=== PATIENT | male | born 1950 ===

== ENCOUNTER 2024-04-08 06:05 | Day surgery (SDC) | payer OTHER ==
[2024-04-08] MEDS ORDERED: DIPHENHYDRAMINE HCL 50 MG/ML VIAL 1ML IV ONE (10:15)
[2024-04-08] MEDS ORDERED: fentaNYL CITRATE 50 MCG/ML AMPUL IV ONE (10:15)
[2024-04-08] MEDS ORDERED: MIDAZOLAM HCL 2 MG/2 ML VIAL IV ONE (10:15)
== END 2024-04-08 11:50 | disposition home or self-care (01) ==
LOC: AMB-ENDOS 06:05
PROVIDERS: ATTEND Surgery
DX: C18.4 Malignant neoplasm of transverse colon (principal); K63.5 Polyp of colon; K57.30 Diverticulosis of large intestine without perforation or abscess without bleeding; K64.8 Other hemorrhoids

== ENCOUNTER 2024-05-17 11:00 | Inpatient (IN) | payer OTHER ==
[~2024-05-17] VITALS: Ht 172.7 cm; Wt 84.4 kg
[2024-05-17] MEDS ORDERED: METFORMIN HCL1000 M2 PO (12:11)
[2024-05-17] MEDS ORDERED: HORIZANT300 MG PO (12:11)
[2024-05-17] MEDS ORDERED: GLIPIZIDE XL10 MG PO (12:11)
[2024-05-17] MEDS ORDERED: ATORVASTATIN CA40 MG PO (12:12)
[2024-05-17] MEDS ORDERED: FARXIGA10 MG PO (12:14)
[2024-05-17] MEDS ORDERED: TAMS0.4C PO (12:14)
[2024-05-17] MEDS ORDERED: MICARDIS80 MG PO (12:14)
[2024-05-17] MEDS ORDERED: FUSION PLUS CA1 EACH PO (12:15)
[2024-05-17] MEDS ORDERED: VERAPAMIL ER240 MG PO (12:15)
[2024-05-17] MEDS ORDERED: PEPCID AC20 MG PO (12:15)
[2024-05-17 12:21] VITALS: BP 140/71
[2024-05-21] MEDS ORDERED: METRONIDAZOLE/SODIUM CHLORIDE 500 MG/100 ML PIGGYBACK IV ONE ×2 (08:16→17:08)
[2024-05-21] MEDS ORDERED: CEFTRIAXONE SODIUM 2,000 MG VIAL ONE (08:16)
[2024-05-21] MEDS ORDERED: HETASTARCH IN 0.9 % NACL 500 ML PLAST..BAG IV ONE (12:39)
[2024-05-21] MEDS ORDERED: MORPHINE SULFATE 4 MG/ML VIAL IV ONE ×2 (14:15→15:55)
[2024-05-21] MEDS ORDERED: ONDANSETRON HCL 2 MG/ML VIAL IV PRN (15:30)
[2024-05-21] MEDS ORDERED: MORPHINE SULFATE 4 MG/ML CARTRIDGE IV PRN (15:30)
[2024-05-21] MEDS ORDERED: OxyCODONE HCL 5 MG TABLET (ROXICODONE) PO PRN (15:30)
[2024-05-21] MEDS ORDERED: RINGERS SOLUTION,LACTATED 1,000 ML IV SCH (15:30)
[2024-05-21] MEDS ORDERED: INSULIN LISPRO 1,000 UNIT/10 ML UNITS SUBCUTANEO PRN (15:45)
[2024-05-21] MEDS ORDERED: DEXTROSE 50 % IN WATER 0.5 G/ML DISP.SYRIN IV PRN (15:45)
[2024-05-21] MEDS ORDERED: LACTOBACILLUS ACIDOPHILUS 1 CAP CAP PO SCH (17:00)
[2024-05-21] MEDS ORDERED: HYOSCYAMINE SULFATE 0.125 MG TAB.SUBL SL SCH (17:00)
[2024-05-21] MEDS ORDERED: TAMSULOSIN HCL 0.4 MG CAP PO SCH (17:00)
[2024-05-21] MEDS ORDERED: METRONIDAZOLE/SODIUM CHLORIDE 500 MG/100 ML PIGGYBACK IV SCH (17:00)
[2024-05-21] MEDS ORDERED: GABAPENTIN 300 MG CAPSULE PO SCH (17:00)
[2024-05-21 17:53] VITALS: BP 162/77; O2SAT 97
[2024-05-21] MEDS ORDERED: ACETAMINOPHEN 500 MG GEL..CAP PO SCH (18:00)
[2024-05-21] MEDS ORDERED: FAMOTIDINE/PF 20 MG/2 ML VIAL IV PUSH SCH (21:00)
[2024-05-21] MEDS ORDERED: CIPROFLOXACIN IN 5 % DEXTROSE 400 MG/200 ML PIGGYBAG IV SCH (21:00)
[2024-05-22 00:39] VITALS: BP 154/70; O2SAT 100
[2024-05-22 08:00] VITALS: BP 156/74; O2SAT 98
[2024-05-22] MEDS ORDERED: VERAPAMIL HCL 240 MG TABLET.SA PO SCH (09:00)
[2024-05-22] MEDS ORDERED: TELMISARTAN PO SCH (09:00)
[2024-05-22] MEDS ORDERED: HYDROCHLOROTHIAZIDE PO SCH (09:00)
[2024-05-22 12:14] LABS: ALBUMIN 2.4 gm/dL (3.4-5.0); CALCIUM 8.2 mg/dL (8.5-10.1); CREATININE SERUM 0.88 mg/dL (0.70-1.30); GFR 84.65; MAGNESIUM 1.5 mg/dL (1.8-2.4); POTASSIUM 3.94 mEq/L (3.5-5.1)
[2024-05-22 12:20] LABS: PHOSPHOROUS 1.9 mg/dL (2.5-4.9)
[2024-05-22] MEDS ORDERED: MAGNESIUM SULFATE IN WATER 50 ML IV NR (14:30)
[2024-05-22 16:08] VITALS: BP 111/61; O2SAT 98
[2024-05-22] MEDS ORDERED: ENOXAPARIN SODIUM 40 MG/0.4 ML SYRINGE SUBCUTANEO SCH (17:00)
[2024-05-22] MEDS ORDERED: POTASSIUM PHOS,M-BASIC-D-BASIC 3 MM/ML VIAL IV ONE (17:00)
[2024-05-22 18:45] LABS: HEMATOCRIT 32.5 % (39.0-48.0); HEMOGLOBIN 10.5 g/dL (13-16.00); MEAN CELL VOLUME 77.5 fL (80.0-100.00); MEAN CORPUSCULAR HGB CONC 32.2 g/dl (32.0-36.0); PLATELET COUNT 334 K/uL (150-450); RED CELL DISTRIBUTION WIDTH 24.4 % (11.5-14.5)
[2024-05-23 01:01] VITALS: BP 135/63; O2SAT 96
[2024-05-23 08:16] LABS: CALCIUM 8.5 mg/dL (8.5-10.1); CREATININE SERUM 0.76 mg/dL (0.70-1.30); GFR 100.26; MAGNESIUM 2.1 mg/dL (1.8-2.4); PHOSPHOROUS 2.8 mg/dL (2.5-4.9); POTASSIUM 4.65 mEq/L (3.5-5.1)
[2024-05-23 08:43] VITALS: BP 158/77; O2SAT 97
[2024-05-23] MEDS ORDERED: ENOXAPARIN SODIUM 40 MG/0.4 ML SYRINGE SUBCUTANEO SCH (09:00)
[2024-05-23 10:38] LABS: HEMATOCRIT 33.6 % (39.0-48.0); HEMOGLOBIN 10.9 g/dL (13-16.00); MEAN CELL VOLUME 76.3 fL (80.0-100.00); MEAN CORPUSCULAR HEMOGLOBIN 24.7 pg (27.00-32.0); MEAN CORPUSCULAR HGB CONC 32.4 g/dl (32.0-36.0); PLATELET COUNT 355 K/uL (150-450); RED CELL DISTRIBUTION WIDTH 24.6 % (11.5-14.5)
[2024-05-23 16:24] VITALS: BP 116/67; O2SAT 98
[2024-05-24] VITALS: BP 133/70; O2SAT 97
[2024-05-24 08:00] VITALS: BP 156/72; O2SAT 97
[2024-05-24] MEDS ORDERED: INTESTINEX680 M1 PO (15:39)
[2024-05-24] MEDS ORDERED: HYOSCYAMINE0.125 M1 SL (15:40)
[2024-05-24 16:56] VITALS: BP 94/54; O2SAT 95
== END 2024-05-24 18:50 | disposition home or self-care (01) | DRG 330 ==
LOC: O/R 05-21 05:36 → SURH 05-21 07:00
PROVIDERS: Internal Medicine Geriatric Medicine; ADMIT Surgery; ATTEND Surgery
PROC: 07BC4ZZ Excision of Pelvis Lymphatic, Percutaneous Endoscopic Approach (ICD-10-PCS; 2024-05-21)
PROC: 07BB4ZZ Excision of Mesenteric Lymphatic, Percutaneous Endoscopic Approach (ICD-10-PCS; 2024-05-21)
PROC: 0DBL4ZZ Excision of Transverse Colon, Percutaneous Endoscopic Approach (ICD-10-PCS; 2024-05-21)
PROC: 4A12X4Z Monitoring of Cardiac Electrical Activity, External Approach (ICD-10-PCS; 2024-05-21)
PROC: 0DTF4ZZ Resection of Right Large Intestine, Percutaneous Endoscopic Approach (ICD-10-PCS; principal; 2024-05-21 07:00)
PROC: 30233N1 Transfusion of Nonautologous Red Blood Cells into Peripheral Vein, Percutaneous Approach (ICD-10-PCS; 2024-05-22)
DX: C18.4 Malignant neoplasm of transverse colon (principal); C18.2 Malignant neoplasm of ascending colon; C78.6 Secondary malignant neoplasm of retroperitoneum and peritoneum; D12.1 Benign neoplasm of appendix; D12.0 Benign neoplasm of cecum; R59.0 Localized enlarged lymph nodes; D64.89 Other specified anemias; E83.42 Hypomagnesemia; E83.39 Other disorders of phosphorus metabolism; I10 Essential (primary) hypertension; E11.9 Type 2 diabetes mellitus without complications; Z79.84 Long term (current) use of oral hypoglycemic drugs